=== PATIENT | male | born 1950 | race Two or more races ===

== ENCOUNTER 2016-05-07 14:25 | Inpatient (IN) | payer MEDICARE, MEDICAID ==
[~2016-05-07] VITALS: Ht 157.5 cm; Wt 100.4 kg
[2016-05-07 15:16] LABS: GLUCOSE,POINT OF CARE 147 MG/DL (70-110)
[2016-05-07] MEDS ORDERED: LISI-662 PO (15:35)
[2016-05-07] MEDS ORDERED: METF500T4 PO (15:35)
[2016-05-07] MEDS ORDERED: INSLAN SQ (15:35)
[2016-05-07] MEDS ORDERED: INSNOV SQ (15:36)
[2016-05-07] MEDS ORDERED: ATOR40TA28 PO (15:36)
[2016-05-07 17:17] LABS: BASOPHILS % (AUTO) 0.6 % (0.0-2.0); EOSINOPHILS % (AUTO) 1.7 % (1.0-6.0); HEMATOCRIT 45.9 % (41-53); HEMOGLOBIN 15.1 g/dL (13.5-17.5); LYMPHOCYTES # (AUTO) 1.6 K/uL (1.0-4.8); MEAN CORPUSCULAR VOLUME 91 fL (80-100); MONOCYTES # (AUTO) 0.6 K/uL (0.1-1.0); MONOCYTES % (AUTO) 7.7 % (2.0-9.0); NEUTROPHILS # (AUTO) 5.5 K/uL (1.8-7.7); PLATELET COUNT (AUTO) 185 K/uL (150-450); RED BLOOD CELL COUNT(AUTO) 5.05 MIL/uL (4.50-5.90); RED CELL DISTRIBUTION WIDTH 13.8 % (11.5-14.5); WHITE BLOOD COUNT (AUTO) 7.8 K/uL (4.5-11.0)
[2016-05-07 17:26] LABS: CALCIUM, TOTAL 9.1 mg/dL (8.8-10.5); CREATININE 1.24 mg/dL (0.60-1.30)
[2016-05-07 17:33] LABS: ALBUMIN 3.7 g/dL (3.4-5.0); BILIRUBIN,TOTAL 0.6 mg/dL (0.1-1.0); TOTAL PROTEIN, SERUM 7.7 g/dL (6.4-8.2)
[2016-05-07] MEDS ORDERED: CEFTAROLINE 600 MG/D5W 250 ML IV ONE (18:45)
[2016-05-07] MEDS ORDERED: ACETAMINOPHEN 325 MG TABLET PO PRN (20:45)
[2016-05-07] MEDS ORDERED: OxyCODONE HCL/ACETAMINOPHEN 5-325 MG TABLET PO PRN (20:45)
[2016-05-07] MEDS ORDERED: MAGNESIUM HYDROXIDE SUSPENSION 30 ML UDCUP PO PRN (20:45)
[2016-05-07] MEDS ORDERED: ALBUTEROL SULFATE 2.5 MG/0.5 ML NEB SOLUTION NEB PRN (20:45)
[2016-05-07] MEDS ORDERED: IPRATROPIUM BROMIDE 0.5 MG/2.5 ML NEB SOLUTION NEB PRN (20:45)
[2016-05-07] MEDS ORDERED: BISACODYL 10 MG RECTAL RECTAL SUPPOSITORY PR PRN (20:45)
[2016-05-07] MEDS ORDERED: MORPHINE SULFATE 2 MG/ML SYRINGE IVP PRN (21:00)
[2016-05-07] MEDS: INSULIN DETEMIR 100 UNITS/ML SQ SCH (21:31)
[2016-05-07] MEDS: HEPARIN SODIUM,PORCINE 5,000 UNITS/ML VIAL SQ SCH (21:31)
[2016-05-07 21:37] LABS: GLUCOSE,POINT OF CARE 203 MG/DL (70-110)
[2016-05-07] MEDS: ATORVASTATIN CALCIUM 40 MG TABLET PO SCH (21:53)
[2016-05-07] MEDS: ZOLPIDEM TARTRATE 5 MG TABLET PO PRN (23:19)
[2016-05-08 06:30] LABS: BASOPHILS % (AUTO) 0.5 % (0.0-2.0); EOSINOPHILS % (AUTO) 3.1 % (1.0-6.0); HEMATOCRIT 42.3 % (41-53); LYMPHOCYTES # (AUTO) 1.6 K/uL (1.0-4.8); LYMPHOCYTES % (AUTO) 17.4 % (22.0-44.0); MEAN CORPUSCULAR HEMOGLOBIN 30.5 pg (26.0-34.0); MEAN CORPUSCULAR HGB CONC 33.2 G/dL (31.0-37.0); MEAN CORPUSCULAR VOLUME 92 fL (80-100); MONOCYTES # (AUTO) 0.9 K/uL (0.1-1.0); NEUTROPHILS # (AUTO) 6.4 K/uL (1.8-7.7); PLATELET COUNT (AUTO) 177 K/uL (150-450); RED BLOOD CELL COUNT(AUTO) 4.61 MIL/uL (4.50-5.90); RED CELL DISTRIBUTION WIDTH 13.8 % (11.5-14.5); WHITE BLOOD COUNT (AUTO) 9.3 K/uL (4.5-11.0)
[2016-05-08 07:21] LABS: ALANINE AMINOTRANSFERASE 24 U/L (12-78); ALBUMIN 3.1 g/dL (3.4-5.0); ANION GAP 7 mmol/L (8-16); ASPARTATE AMINOTRANSFERASE 16 U/L (15-37); BILIRUBIN,TOTAL 0.5 mg/dL (0.1-1.0); CALCIUM, TOTAL 8.3 mg/dL (8.8-10.5); CARBON DIOXIDE 30 mmol/L (22-29); CHLORIDE 101 mmol/L (98-107); CHOL/HDL RATIO 3.6 (4.2-7.3); CREATININE 0.92 mg/dL (0.60-1.30); GLOMERULAR FILTR. RATE CALC > 60 mL/min (>60); PHOSPHORUS 2.9 mg/dL (2.5-4.9); POTASSIUM 3.8 mmol/L (3.5-5.1); SODIUM SERUM 138 mmol/L (136-145); THYROID STIMULATING HORMONE 0.89 uIU/mL (0.36-3.74); TOTAL PROTEIN, SERUM 6.7 g/dL (6.4-8.2); UREA NITROGEN, BLOOD 14 mg/dL (7-18)
[2016-05-08] MEDS: CEFTAROLINE 600 MG/D5W 250 ML IV SCH ×2 (07:25→18:40)
[2016-05-08] MEDS: MetFORMIN HCL 500 MG TABLET PO SCH ×2 (07:26→17:06)
[2016-05-08 07:32] LABS: GLUCOSE,POINT OF CARE 163 MG/DL (70-110)
[2016-05-08 08:09] VITALS: BP 155/79
[2016-05-08] MEDS ORDERED: MAGNESIUM SULFATE 4 GM/WATER 100 ML IV PRN (09:30)
[2016-05-08] MEDS ORDERED: MAGNESIUM OXIDE 400 MG TABLET PO PRN (09:30)
[2016-05-08] MEDS ORDERED: MAGNESIUM SULFATE 2 GM in DEXTROSE 5%-WATER 50 ML IV PRN (09:30)
[2016-05-08] MEDS ORDERED: GADOBUTROL 1 MMOL/ML 10 ML VIAL IVP ONE (10:55)
[2016-05-08 11:27] LABS: GLUCOSE,POINT OF CARE 219 MG/DL (70-110)
[2016-05-08] MEDS: HEPARIN SODIUM,PORCINE 5,000 UNITS/ML VIAL SQ SCH ×2 (11:27→21:00)
[2016-05-08] MEDS: LISINOPRIL 20 MG TABLET PO SCH (11:28)
[2016-05-08] MEDS: PANTOPRAZOLE SODIUM 40 MG DR TABLET PO SCH (11:28)
[2016-05-08] MEDS ORDERED: DEXTROSE 50%-WATER 25 GM/50 ML SYRINGE IVP PRN (11:45)
[2016-05-08 11:47] VITALS: BP 143/90
[2016-05-08] MEDS ORDERED: SODIUM CHLORIDE 0.9% 500 ML IV ONE (12:34)
[2016-05-08 16:29] VITALS: BP 149/90
[2016-05-08] MEDS: INSULIN ASPART 100 UNITS/ML SQ PRN ×2 (17:03→21:04)
[2016-05-08 17:47] LABS: GLUCOSE COMMENT 1 Received Meds; GLUCOSE,POINT OF CARE 235 MG/DL (70-110)
[2016-05-08 20:33] VITALS: BP 143/82
[2016-05-08] MEDS: ATORVASTATIN CALCIUM 40 MG TABLET PO SCH (21:01)
[2016-05-08] MEDS: INSULIN DETEMIR 100 UNITS/ML SQ SCH (21:02)
[2016-05-08] MEDS: ZOLPIDEM TARTRATE 5 MG TABLET PO PRN (21:04)
[2016-05-08 21:51] LABS: GLUCOSE COMMENT 1 Received Meds; GLUCOSE,POINT OF CARE 222 MG/DL (70-110)
[2016-05-09 00:09] VITALS: BP 134/83
[2016-05-09] MEDS ORDERED: ONDANSETRON HCL 4 MG/2 ML VIAL IVP ONE ×2 (00:38→00:48)
[2016-05-09] MEDS ORDERED: PROPOFOL 1% 20 ML VIAL IVP ONE ×2 (00:38→00:48)
[2016-05-09] MEDS ORDERED: LIDOCAINE HCL/PF 2% 5 ML VIAL IM ONE ×2 (00:38→00:48)
[2016-05-09] MEDS ORDERED: METOCLOPRAMIDE HCL 5 MG/ML 2 ML VIAL IVP ONE (00:48)
[2016-05-09] MEDS ORDERED: FentaNYL CITRATE-PF 100 MCG/2 ML VIAL IVP ONE (05:09)
[2016-05-09] MEDS ORDERED: MIDAZOLAM HCL 2 MG/2 ML VIAL IVP ONE (05:09)
[2016-05-09] MEDS ORDERED: SODIUM CHLORIDE 0.9% 250 ML IV ONE (06:10)
[2016-05-09] MEDS: CEFTAROLINE 600 MG/D5W 250 ML IV SCH ×2 (06:18→18:03)
[2016-05-09 06:32] VITALS: BP 118/75
[2016-05-09 06:47] LABS: GLUCOSE,POINT OF CARE 150 MG/DL (70-110)
[2016-05-09] MEDS ORDERED: MINERAL OIL 10 ML VIAL TP ONE (07:08)
[2016-05-09 07:21] VITALS: BP 139/80
[2016-05-09 07:40] LABS: BASOPHILS # (AUTO) 0.03 K/uL (0.00-0.20); BASOPHILS % (AUTO) 0.4 % (0.0-2.0); EOSINOPHILS # (AUTO) 0.22 K/uL (0.00-0.70); EOSINOPHILS % (AUTO) 2.85 % (1.0-6.0); HEMATOCRIT 43.2 % (41-53); HEMOGLOBIN 14.5 g/dL (13.5-17.5); LYMPHOCYTES # (AUTO) 1.6 K/uL (1.0-4.8); LYMPHOCYTES % (AUTO) 20.7 % (22.0-44.0); MEAN CORPUSCULAR HEMOGLOBIN 30.6 pg (26.0-34.0); MEAN CORPUSCULAR HGB CONC 33.6 G/dL (31.0-37.0); MEAN CORPUSCULAR VOLUME 91 fL (80-100); MONOCYTES # (AUTO) 0.7 K/uL (0.1-1.0); NEUTROPHILS # (AUTO) 5.2 K/uL (1.8-7.7); PLATELET COUNT (AUTO) 192 K/uL (150-450); RED BLOOD CELL COUNT(AUTO) 4.74 MIL/uL (4.50-5.90); RED CELL DISTRIBUTION WIDTH 14.1 % (11.5-14.5); WHITE BLOOD COUNT (AUTO) 7.7 K/uL (4.5-11.0)
[2016-05-09] MEDS: MetFORMIN HCL 500 MG TABLET PO SCH ×2 (08:00→17:41)
[2016-05-09 08:02] LABS: ANION GAP 7 mmol/L (8-16); CALCIUM, TOTAL 8.3 mg/dL (8.8-10.5); CARBON DIOXIDE 29 mmol/L (22-29); CHLORIDE 101 mmol/L (98-107); CREATININE 0.82 mg/dL (0.60-1.30); GLOMERULAR FILTR. RATE CALC > 60 mL/min (>60); POTASSIUM 3.8 mmol/L (3.5-5.1); SODIUM SERUM 137 mmol/L (136-145); UREA NITROGEN, BLOOD 12 mg/dL (7-18)
[2016-05-09] MEDS: HEPARIN SODIUM,PORCINE 5,000 UNITS/ML VIAL SQ SCH ×2 (09:00→21:34)
[2016-05-09] MEDS ORDERED: RINGERS SOLUTION,LACTATED 1,000 ML IV ONE ×2 (11:00→11:02)
[2016-05-09] MEDS ORDERED: MEPERIDINE-PF 25 MG/ML SYRINGE IVP PRN (11:30)
[2016-05-09] MEDS ORDERED: OXYGEN THERAPY IH SCH (11:30)
[2016-05-09] MEDS ORDERED: HYDROmorphone 2 MG/ML SYRINGE IVP PRN (11:30)
[2016-05-09] MEDS ORDERED: FentaNYL CITRATE-PF 100 MCG/2 ML VIAL IVP PRN (11:30)
[2016-05-09] MEDS ORDERED: SODIUM CHLORIDE 0.9% 10 ML ONE ×2 (11:52→11:55)
[2016-05-09] MEDS ORDERED: SODIUM CHLORIDE 0.9% 1,000 ML IV ONE (11:52)
[2016-05-09] MEDS: BUPIVACAINE HCL/PF 0.5% 30 ML VIAL ONE ×2 (11:55→12:07)
[2016-05-09] MEDS ORDERED: BACITRACIN 50,000 UNITS/VIAL ONE (11:55)
[2016-05-09] MEDS: LIDOCAINE HCL/PF 1% 30 ML VIAL ONE ×2 (11:55→12:08)
[2016-05-09] MEDS: BACITRACIN 50,000 UNITS/VIAL ONE ×2 (12:01→12:07)
[2016-05-09] MEDS ORDERED: GELATIN SPONGE,ABSORBABLE 50 MM TP ONE (12:27)
[2016-05-09] MEDS: LISINOPRIL 20 MG TABLET PO SCH (15:10)
[2016-05-09] MEDS: PANTOPRAZOLE SODIUM 40 MG DR TABLET PO SCH (15:11)
[2016-05-09 15:45] VITALS: BP 135/81
[2016-05-09 17:17] LABS: GLUCOSE COMMENT 1 Received Meds; GLUCOSE,POINT OF CARE 227 MG/DL (70-110)
[2016-05-09] MEDS: INSULIN ASPART 100 UNITS/ML SQ PRN ×2 (17:40→21:35)
[2016-05-09 20:07] VITALS: BP 125/77
[2016-05-09] MEDS: INSULIN DETEMIR 100 UNITS/ML SQ SCH (21:34)
[2016-05-09] MEDS: ATORVASTATIN CALCIUM 40 MG TABLET PO SCH (21:35)
[2016-05-09 22:12] LABS: GLUCOSE,POINT OF CARE 263 MG/DL (70-110)
[2016-05-09 23:42] VITALS: BP 128/68
[2016-05-10 05:25] VITALS: BP 136/75
[2016-05-10 06:12] LABS: GLUCOSE,POINT OF CARE 104 MG/DL (70-110)
[2016-05-10] MEDS: CEFTAROLINE 600 MG/D5W 250 ML IV SCH ×2 (06:24→17:42)
[2016-05-10 07:49] VITALS: BP 130/78
[2016-05-10] MEDS: MetFORMIN HCL 500 MG TABLET PO SCH ×2 (08:08→17:43)
[2016-05-10] MEDS: PANTOPRAZOLE SODIUM 40 MG DR TABLET PO SCH (08:09)
[2016-05-10] MEDS: LISINOPRIL 20 MG TABLET PO SCH (08:09)
[2016-05-10] MEDS: HEPARIN SODIUM,PORCINE 5,000 UNITS/ML VIAL SQ SCH ×2 (08:09→20:02)
[2016-05-10] MEDS: INSULIN ASPART 100 UNITS/ML SQ PRN ×2 (11:44→20:06)
[2016-05-10 16:02] VITALS: BP 134/68
[2016-05-10 18:12] LABS: GLUCOSE,POINT OF CARE 122 MG/DL (70-110)
[2016-05-10 18:32] LABS: GLUCOSE,POINT OF CARE 144 MG/DL (70-110)
[2016-05-10 19:53] VITALS: BP 134/69
[2016-05-10] MEDS: ATORVASTATIN CALCIUM 40 MG TABLET PO SCH (20:02)
[2016-05-10] MEDS: INSULIN DETEMIR 100 UNITS/ML SQ SCH (20:07)
[2016-05-10 22:56] LABS: GLUCOSE,POINT OF CARE 143 MG/DL (70-110)
[2016-05-10 23:34] VITALS: BP 146/80
[2016-05-10] MEDS: ZOLPIDEM TARTRATE 5 MG TABLET PO PRN (23:37)
[2016-05-11 04:40] VITALS: BP 125/69
[2016-05-11] MEDS: CEFTAROLINE 600 MG/D5W 250 ML IV SCH (06:01)
[2016-05-11 06:56] LABS: GLUCOSE,POINT OF CARE 78 MG/DL (70-110)
[2016-05-11 07:49] VITALS: BP 129/68
[2016-05-11] MEDS: MetFORMIN HCL 500 MG TABLET PO SCH (08:16)
[2016-05-11] MEDS: PANTOPRAZOLE SODIUM 40 MG DR TABLET PO SCH (08:16)
[2016-05-11] MEDS: LISINOPRIL 20 MG TABLET PO SCH (08:16)
[2016-05-11] MEDS: HEPARIN SODIUM,PORCINE 5,000 UNITS/ML VIAL SQ SCH (08:17)
[2016-05-11] MEDS ORDERED: CEPH500 PO ×2 (10:47)
[2016-05-11] MEDS ORDERED: HYDR-309 PO (10:47)
[2016-05-11 12:02] LABS: GLUCOSE,POINT OF CARE 146 MG/DL (70-110)
== END 2016-05-11 11:33 | disposition home or self-care (01) | DRG 623 ==
LOC: EDSEX 14:26 → EMS 14:26 → 6N 05-08 06:23
PROVIDERS: ADMIT Internal Medicine; ATTEND Internal Medicine
PROC: 0JBQ0ZZ Excision of Right Foot Subcutaneous Tissue and Fascia, Open Approach (ICD-10-PCS; 2016-05-09)
PROC: 0HRMXK4 Replacement of Right Foot Skin with Nonautologous Tissue Substitute, Partial Thickness, External Approach (ICD-10-PCS; 2016-05-09)
PROC: 0QBN0ZX Excision of Right Metatarsal, Open Approach, Diagnostic (ICD-10-PCS; principal; 2016-05-09 12:01)
DX: E11.621 Type 2 diabetes mellitus with foot ulcer (principal); Z68.41 Body mass index [BMI] 40.0-44.9, adult; L97.519 Non-pressure chronic ulcer of other part of right foot with unspecified severity; I10 Essential (primary) hypertension; E66.01 Morbid (severe) obesity due to excess calories; E78.00 Pure hypercholesterolemia, unspecified; E78.5 Hyperlipidemia, unspecified; E11.40 Type 2 diabetes mellitus with diabetic neuropathy, unspecified; E11.69 Type 2 diabetes mellitus with other specified complication; M19.90 Unspecified osteoarthritis, unspecified site; M20.10 Hallux valgus (acquired), unspecified foot; Z79.899 Other long term (current) drug therapy; Z79.4 Long term (current) use of insulin; Z91.19 Patient's noncompliance with other medical treatment and regimen; Z83.3 Family history of diabetes mellitus
CPT/HCPCS: 73720; 82306; 82962; 83036; 83735; 84100; 84443; 87040; 87070; 87081; 87205; 88304; 88311; 96365; 99285; A9585; J0690; J0712; J1644; J2250; J2270; J2405; J2704; J2765; J3010; J3475; J3490; J7030; J7040; J7050; J7120

== ENCOUNTER 2016-06-22 10:39 | Emergency (ER) | payer MEDICARE, MEDICAID ==
[~2016-06-22] VITALS: Ht 188 cm; Wt 101.8 kg
[~2016-06-22 10:39] MED LIST: ATOR40TA28 PO; CEPH500 PO; HYDR-309 PO; INSLAN SQ; INSNOV SQ; LISI-662 PO; METF500T4 PO
[2016-06-22 10:56] LABS: GLUCOSE,POINT OF CARE 236 MG/DL (70-110)
[2016-06-22] MEDS ORDERED: POVIDONE-IODINE 10% 15 ML SOLUTION UD TP ONE (12:30)
[2016-06-22] MEDS ORDERED: CEPHALEXIN MONOHYDRATE 500 MG CAPSULE PO ONE (12:45)
[2016-06-22] MEDS ORDERED: BACITRACIN 0.9 GM PACKET OINTMENT TP ONE (12:45)
[2016-06-22 13:04] VITALS: BP 115/63
== END 2016-06-22 13:20 | disposition home or self-care (01) ==
LOC: EMS 10:46
DX: E11.621 Type 2 diabetes mellitus with foot ulcer (principal); E78.00 Pure hypercholesterolemia, unspecified; Z79.4 Long term (current) use of insulin
CPT/HCPCS: 11042; 82962; 99283; 99284

== ENCOUNTER → 2016-08-03 | Outpatient (CLI) | payer MEDICARE, MEDICAID | END | disposition home or self-care (01) | LOC: RADPV 12:04 | PROVIDERS: ATTEND Podiatrist Foot & Ankle Surgery | DX: M79.671 Pain in right foot (principal); M20.11 Hallux valgus (acquired), right foot ==